=== PATIENT | female | born 1940 | race Caucasian/White ===

== ENCOUNTER 2025-05-29 11:14 | Inpatient (IN) | payer MEDICARE, OTHER, SELFPAY ==
[2025-05-29] MEDS ORDERED: Ketorolac Tromethamine 30 MG (1 mL) VIAL ONE (11:38)
[2025-05-29 11:52] LABS: ALT (SGPT) 54 U/L (Less than 34); AST (SGOT) 123 U/L (11-34); Albumin 3.1 g/dL (3.1-4.5); Alkaline Phosphatase 64 U/L (40-110); Anion Gap 16 mmol/L (10-20); BUN (Urea Nitrogen) 44 mg/dL (9.8-20.1); Bilirubin, Total 1.5 mg/dL (0.3-1.2); Calc. Creatinine Clearance 0 mL/min (70-130); Calcium 10.6 mg/dL (7.8-10.44); Carbon Dioxide 18 mmol/L (23-31); Chloride 102 mmol/L (98-107); Globulin 4.2 g/dL (2.4-3.5); Glucose 232 mg/dL (83-110); Potassium 4.3 mmol/L (3.5-5.1); Sodium 132 mmol/L (136-145)
[2025-05-29 12:14] LABS: INR-International Normal Ratio 1.3; PTT 36.3 sec (22.9-36.1); Prothrombin Time 16.4 sec (12.0-14.7)
[2025-05-29 12:27] LABS: #Basophils 0.03 10x3/uL (0.0-0.2); #Eosinophils Less than 0.03 10x3/uL (0.0-0.7); #Monocytes 1.36 10x3/uL (0.11-0.59); #Neutrophils 10.84 10x3/uL (1.40-6.50); %Basophils 0.2 % (0.0-1.0); %Eosinophils 0.0 % (0.0-10.0); %Lymphocytes 7.7 % (21.0-51.0); %Monocytes 10.2 % (0.0-10.0); %Neutrophils 81.4 % (42.0-75.0); Hematocrit 38.8 % (36.0-47.0); Hemoglobin 12.8 g/dL (12.0-16.0); Mean Corpuscular Hemoglobin 28.3 pg (27.0-31.0); Mean Corpuscular Volume 85.7 fL (78.0-98.0); Platelet Count 160 10x3/uL (130-400); Red Blood Cell (RBC) Count 4.53 mill/uL (4.20-5.40); White Blood Cell (WBC) Count 13.32 10x3/uL (4.8-10.8)
[2025-05-29] MEDS ORDERED: Heparin 5,000 UNITS/ML VIAL ONE (13:47)
[2025-05-29] MEDS ORDERED: Senokot S 8.6-50 MG TAB PO PRN (15:53)
[2025-05-29] MEDS ORDERED: Bisacodyl 10 MG SUPP PR PRN (15:53)
[2025-05-29] MEDS ORDERED: Ondansetron PF 4 MG/2 ML Vial IVP PRN (15:53)
[2025-05-29] MEDS ORDERED: Pantoprazole 40 MG VIAL ONE (19:54)
[2025-05-29] MEDS ORDERED: Aspirin 325 MG TAB ONE (19:54)
[2025-05-29] MEDS: Aspirin 325 MG TAB PO SCH (20:02)
[2025-05-29] MEDS: Pantoprazole 40 MG VIAL IVP SCH (20:05)
[2025-05-30 01:27] VITALS: BMI 24.7
[2025-05-30 03:51] LABS: #Basophils Less than 0.03 10x3/uL (0.0-0.2); #Eosinophils Less than 0.03 10x3/uL (0.0-0.7); #Monocytes 0.88 10x3/uL (0.11-0.59); #Neutrophils 8.33 10x3/uL (1.40-6.50); %Basophils 0.2 % (0.0-1.0); %Eosinophils 0.2 % (0.0-10.0); %Lymphocytes 5.3 % (21.0-51.0); %Monocytes 9.0 % (0.0-10.0); %Neutrophils 84.8 % (42.0-75.0); Hematocrit 40.5 % (36.0-47.0); Hemoglobin 13.2 g/dL (12.0-16.0); Mean Corpuscular Hemoglobin 28.6 pg (27.0-31.0); Mean Corpuscular Volume 87.9 fL (78.0-98.0); Platelet Count 150 10x3/uL (130-400); Red Blood Cell (RBC) Count 4.61 mill/uL (4.20-5.40); White Blood Cell (WBC) Count 9.82 10x3/uL (4.8-10.8)
[2025-05-30 04:15] LABS: ALT (SGPT) 44 U/L (Less than 34); AST (SGOT) 77 U/L (11-34); Albumin 3.0 g/dL (3.1-4.5); Alkaline Phosphatase 68 U/L (40-110); Anion Gap 16 mmol/L (10-20); BUN (Urea Nitrogen) 44 mg/dL (9.8-20.1); Bilirubin, Direct 0.6 mg/dL (0.1-0.3); Bilirubin, Total 1.2 mg/dL (0.3-1.2); Calc. Creatinine Clearance 22 mL/min (70-130); Calcium 10.7 mg/dL (7.8-10.44); Carbon Dioxide 18 mmol/L (23-31); Cardiac Risk 4.0 (Less than 4.5); Chloride 105 mmol/L (98-107); Cholesterol 101 mg/dl (< 200 Desired); Glucose 130 mg/dL (83-110); HDL Cholesterol 25 mg/dL (>60 Neg Risk); LDL Cholesterol, Calculated 55 mg/dL; Magnesium 1.9 mg/dL (1.6-2.6); Potassium 4.3 mmol/L (3.5-5.1); Sodium 135 mmol/L (136-145); Triglycerides 103 mg/dL (Less than 150)
[2025-05-30] MEDS: Heparin 10,000 UNITS/ 10 ML VIAL SLOW IVP SCH (06:50)
[2025-05-30] MEDS: Aspirin 81 mg Enteric Coated Tablet PO SCH (09:14)
[2025-05-30] MEDS: Pantoprazole 40 MG VIAL IVP SCH (09:14)
[2025-05-30] MEDS: Rosuvastatin 5 MG TAB PO SCH (09:16)
[2025-05-30] MEDS: Metoprolol Succinate XL 100 MG ER.TAB PO SCH (09:16)
[2025-05-30] MEDS: Pregabalin 50 MG CAP PO SCH (09:16)
[2025-05-30 21:01] LABS: Bacteria/HPF 4+ HPF (None Seen); Glucose, Urine (Dipstick) Normal (Negative); Leukocyte 500 Leu/uL (Negative); Protein, Urine (Dipstick) 70 mg/dL (Neg-Trace); RBC/HPF 0-3 HPF (0-3); Specific Gravity, Urine 1.017 (1.002-1.036); WBC/HPF 21-50 HPF (0-3)
[2025-05-31 06:31] LABS: Anion Gap 15 mmol/L (10-20); BUN (Urea Nitrogen) 40 mg/dL (9.8-20.1); Calc. Creatinine Clearance 22 mL/min (70-130); Calcium 9.5 mg/dL (7.8-10.44); Carbon Dioxide 16 mmol/L (23-31); Chloride 108 mmol/L (98-107); Glucose 116 mg/dL (83-110); Magnesium 1.9 mg/dL (1.6-2.6); Potassium 4.5 mmol/L (3.5-5.1); Sodium 134 mmol/L (136-145)
[2025-05-31 07:26] LABS: Anisocytosis SLIGHT = 6-15 cells HPF (0-5); Burr Cells SLIGHT = 2-5 cells HPF (0-1); Macrocytosis SLIGHT = 6-15 cells HPF (0-5); Platelet Adequacy Comment Platelets Normal; Polychromasia SLIGHT = 2-3 cells HPF (0-2)
[2025-05-31 08:17] LABS: #Basophils Less than 0.03 10x3/uL (0.0-0.2); #Eosinophils 0.04 10x3/uL (0.0-0.7); #Monocytes 0.98 10x3/uL (0.11-0.59); #Neutrophils 6.09 10x3/uL (1.40-6.50); %Basophils 0.3 % (0.0-1.0); %Eosinophils 0.5 % (0.0-10.0); %Lymphocytes 8.3 % (21.0-51.0); %Monocytes 12.5 % (0.0-10.0); %Neutrophils 77.8 % (42.0-75.0); Hematocrit 38.1 % (36.0-47.0); Hemoglobin 11.8 g/dL (12.0-16.0); Mean Corpuscular Hemoglobin 28.9 pg (27.0-31.0); Mean Corpuscular Volume 93.4 fL (78.0-98.0); Platelet Count 128 10x3/uL (130-400); Red Blood Cell (RBC) Count 4.08 mill/uL (4.20-5.40); White Blood Cell (WBC) Count 7.83 10x3/uL (4.8-10.8)
[2025-05-31] MEDS: cefTRIAXone\\ROCEPHIN 1 GM in Sodium Chloride 0.9% 100 ML IVPB SCH (09:52)
[2025-05-31] MEDS: Furosemide 40 MG (4 mL) VIAL SLOW IVP SCH ×2 (13:25→16:43)
[2025-05-31] MEDS: Sodium Bicarbonate Tab 325 MG TAB PO SCH ×2 (13:25→20:59)
[2025-05-31 20:16] LABS: Hematocrit 38.0 % (36.0-47.0); Hemoglobin 12.2 g/dL (12.0-16.0); Platelet Count 144 10x3/uL (130-400)
[2025-06-01 09:00] LABS: #Basophils 0.03 10x3/uL (0.0-0.2); #Eosinophils 0.04 10x3/uL (0.0-0.7); #Monocytes 0.75 10x3/uL (0.11-0.59); #Neutrophils 4.90 10x3/uL (1.40-6.50); %Basophils 0.5 % (0.0-1.0); %Eosinophils 0.6 % (0.0-10.0); %Lymphocytes 10.9 % (21.0-51.0); %Monocytes 11.5 % (0.0-10.0); %Neutrophils 75.3 % (42.0-75.0); Hematocrit 37.1 % (36.0-47.0); Hemoglobin 12.2 g/dL (12.0-16.0); Mean Corpuscular Hemoglobin 29.0 pg (27.0-31.0); Mean Corpuscular Volume 88.3 fL (78.0-98.0); Platelet Count 134 10x3/uL (130-400); Red Blood Cell (RBC) Count 4.20 mill/uL (4.20-5.40); White Blood Cell (WBC) Count 6.51 10x3/uL (4.8-10.8)
[2025-06-01 09:26] LABS: Anion Gap 14 mmol/L (10-20); BUN (Urea Nitrogen) 41 mg/dL (9.8-20.1); Calc. Creatinine Clearance 23 mL/min (70-130); Calcium 9.8 mg/dL (7.8-10.44); Carbon Dioxide 22 mmol/L (23-31); Chloride 104 mmol/L (98-107); Glucose 126 mg/dL (83-110); Magnesium 1.7 mg/dL (1.6-2.6); Potassium 3.9 mmol/L (3.5-5.1); Sodium 136 mmol/L (136-145)
[2025-06-01] MEDS: Furosemide 20 MG TAB PO SCH (12:47)
[2025-06-01] MEDS: Acetaminophen 325 MG TAB PO PRN (17:33)
[2025-06-02] MEDS: LevoFLOXacin 250 mg/D5W 250 MG in Premix 1 BAG IVPB SCH (11:29)
[2025-06-02] MEDS: Furosemide 20 MG TAB PO SCH (11:30)
[2025-06-02 20:01] LABS: Hematocrit 37.3 % (36.0-47.0); Hemoglobin 11.7 g/dL (12.0-16.0); Platelet Count 136 10x3/uL (130-400)
[2025-06-03] MEDS: Furosemide 40 MG TAB PO SCH (06:32)
[2025-06-03] MEDS: Enoxaparin 30 MG (0.3 mL) SYRINGE SC SCH (08:45)
[2025-06-04 05:11] LABS: #Basophils 0.03 10x3/uL (0.0-0.2); #Eosinophils 0.22 10x3/uL (0.0-0.7); #Monocytes 0.76 10x3/uL (0.11-0.59); #Neutrophils 4.03 10x3/uL (1.40-6.50); %Basophils 0.5 % (0.0-1.0); %Eosinophils 3.6 % (0.0-10.0); %Lymphocytes 15.5 % (21.0-51.0); %Monocytes 12.6 % (0.0-10.0); %Neutrophils 66.6 % (42.0-75.0); Hematocrit 37.8 % (36.0-47.0); Hemoglobin 12.3 g/dL (12.0-16.0); Mean Corpuscular Hemoglobin 28.3 pg (27.0-31.0); Mean Corpuscular Volume 87.1 fL (78.0-98.0); Platelet Count 189 10x3/uL (130-400); Red Blood Cell (RBC) Count 4.34 mill/uL (4.20-5.40); White Blood Cell (WBC) Count 6.05 10x3/uL (4.8-10.8)
[2025-06-04 05:44] LABS: ALT (SGPT) 15 U/L (Less than 34); AST (SGOT) 22 U/L (11-34); Albumin 2.2 g/dL (3.1-4.5); Alkaline Phosphatase 77 U/L (40-110); Anion Gap 12 mmol/L (10-20); BUN (Urea Nitrogen) 31 mg/dL (9.8-20.1); Bilirubin, Total 0.4 mg/dL (0.3-1.2); Calc. Creatinine Clearance 34 mL/min (70-130); Calcium 9.3 mg/dL (7.8-10.44); Carbon Dioxide 31 mmol/L (23-31); Chloride 96 mmol/L (98-107); Globulin 3.8 g/dL (2.4-3.5); Glucose 146 mg/dL (83-110); Potassium 3.8 mmol/L (3.5-5.1); Sodium 135 mmol/L (136-145)
[2025-06-04] MEDS: Pantoprazole 40 MG DR.TAB PO SCH (09:10)
[2025-06-05 17:08] VITALS: BMI 25.4
[2025-06-07] MEDS ORDERED: Metoprolol Succinate XL 50 MG ER.TAB PO SCH (09:00)
[2025-06-08 10:01] LABS: #Basophils 0.04 10x3/uL (0.0-0.2); #Eosinophils 0.13 10x3/uL (0.0-0.7); #Monocytes 0.41 10x3/uL (0.11-0.59); #Neutrophils 3.47 10x3/uL (1.40-6.50); %Basophils 0.8 % (0.0-1.0); %Eosinophils 2.6 % (0.0-10.0); %Lymphocytes 18.1 % (21.0-51.0); %Monocytes 8.2 % (0.0-10.0); %Neutrophils 68.9 % (42.0-75.0); Hematocrit 40.3 % (36.0-47.0); Hemoglobin 12.7 g/dL (12.0-16.0); Mean Corpuscular Hemoglobin 27.8 pg (27.0-31.0); Mean Corpuscular Volume 88.2 fL (78.0-98.0); Platelet Count 411 10x3/uL (130-400); Red Blood Cell (RBC) Count 4.57 mill/uL (4.20-5.40); White Blood Cell (WBC) Count 5.03 10x3/uL (4.8-10.8)
[2025-06-08 10:14] LABS: Anion Gap 13 mmol/L (10-20); BUN (Urea Nitrogen) 33 mg/dL (9.8-20.1); Calc. Creatinine Clearance 32 mL/min (70-130); Calcium 10.3 mg/dL (7.8-10.44); Carbon Dioxide 29 mmol/L (23-31); Chloride 94 mmol/L (98-107); Glucose 267 mg/dL (83-110); Potassium 4.6 mmol/L (3.5-5.1); Sodium 131 mmol/L (136-145)
[2025-06-08] MEDS: Metoprolol Succinate XL 50 MG ER.TAB PO SCH (13:41)
[2025-06-09 06:06] LABS: #Basophils 0.06 10x3/uL (0.0-0.2); #Eosinophils 0.19 10x3/uL (0.0-0.7); #Monocytes 0.58 10x3/uL (0.11-0.59); #Neutrophils 2.57 10x3/uL (1.40-6.50); %Basophils 1.3 % (0.0-1.0); %Eosinophils 4.2 % (0.0-10.0); %Lymphocytes 23.1 % (21.0-51.0); %Monocytes 12.9 % (0.0-10.0); %Neutrophils 56.9 % (42.0-75.0); Hematocrit 39.6 % (36.0-47.0); Hemoglobin 12.8 g/dL (12.0-16.0); Mean Corpuscular Hemoglobin 28.3 pg (27.0-31.0); Mean Corpuscular Volume 87.4 fL (78.0-98.0); Platelet Count 409 10x3/uL (130-400); Red Blood Cell (RBC) Count 4.53 mill/uL (4.20-5.40); White Blood Cell (WBC) Count 4.51 10x3/uL (4.8-10.8)
[2025-06-09 06:37] LABS: Anion Gap 13 mmol/L (10-20); BUN (Urea Nitrogen) 36 mg/dL (9.8-20.1); Calc. Creatinine Clearance 29 mL/min (70-130); Calcium 10.2 mg/dL (7.8-10.44); Carbon Dioxide 29 mmol/L (23-31); Chloride 96 mmol/L (98-107); Glucose 152 mg/dL (83-110); Potassium 4.5 mmol/L (3.5-5.1); Sodium 133 mmol/L (136-145)
[2025-06-09] MEDS: Metoprolol Succinate XL 50 MG ER.TAB PO SCH (09:24)
[2025-06-09] MEDS: LevoFLOXacin 250 mg/D5W 250 MG in Premix 1 BAG IVPB SCH (09:27)
[2025-06-09 17:19] VITALS: BP 111/72; TEMP 97.5
== END 2025-06-09 18:29 | DRG 280 ==
LOC: ERS 11:14 → ERHOLD 15:15 → 2NO 05-30 00:29 → T4-B 06-07 15:29
PROVIDERS: ADMIT Family Medicine; ATTEND Internal Medicine
DX: I25.10 Atherosclerotic heart disease of native coronary artery without angina pectoris (principal); A41.9 Sepsis, unspecified organism; I21.A1 Myocardial infarction type 2; I50.31 Acute diastolic (congestive) heart failure; E87.1 Hypo-osmolality and hyponatremia; I13.0 Hypertensive heart and chronic kidney disease with heart failure and stage 1 through stage 4 chronic kidney disease, or unspecified chronic kidney disease; N39.0 Urinary tract infection, site not specified; N17.9 Acute kidney failure, unspecified; E78.5 Hyperlipidemia, unspecified; G62.9 Polyneuropathy, unspecified; E11.22 Type 2 diabetes mellitus with diabetic chronic kidney disease; I70.0 Atherosclerosis of aorta; E83.52 Hypercalcemia; I44.7 Left bundle-branch block, unspecified; N18.30 Chronic kidney disease, stage 3 unspecified; Z93.3 Colostomy status; Z60.2 Problems related to living alone; I34.0 Nonrheumatic mitral (valve) insufficiency; Z79.84 Long term (current) use of oral hypoglycemic drugs; Z79.899 Other long term (current) drug therapy
CPT/HCPCS: 36415; 36416; 70450; 71045; 71250; 72125; 80048; 80053; 80061; 80076; 81001; 82550; 83036; 83735; 83880; 84443; 84484; 85014; 85018; 85025; 85049; 85610; 85730; 86850; 86900; 86901; 87077; 87086; 93005; 93306; 94760; 96374; 96375; J0696; J1644; J1650; J1885; J1940; J1956; J2470; J7030

== ENCOUNTER 2025-06-27 11:18 | Inpatient (IN) | payer MEDICARE, SELFPAY ==
[~2025-06-27 11:18] MED LIST: Iopamidol-370 76% 500 ML MDV (1 ML CHARGE) ONE
[2025-06-27 11:56] LABS: #Basophils 0.05 10x3/uL (0.0-0.2); #Eosinophils 0.30 10x3/uL (0.0-0.7); #Monocytes 0.59 10x3/uL (0.11-0.59); #Neutrophils 1.96 10x3/uL (1.40-6.50); %Basophils 1.2 % (0.0-1.0); %Eosinophils 7.3 % (0.0-10.0); %Lymphocytes 28.9 % (21.0-51.0); %Monocytes 14.4 % (0.0-10.0); %Neutrophils 48.0 % (42.0-75.0); Hematocrit 35.8 % (36.0-47.0); Hemoglobin 11.2 g/dL (12.0-16.0); Mean Corpuscular Hemoglobin 27.6 pg (27.0-31.0); Mean Corpuscular Volume 88.2 fL (78.0-98.0); Platelet Count 199 10x3/uL (130-400); Red Blood Cell (RBC) Count 4.06 mill/uL (4.20-5.40); White Blood Cell (WBC) Count 4.09 10x3/uL (4.8-10.8)
[2025-06-27 12:02] LABS: ALT (SGPT) 15 U/L (Less than 34); AST (SGOT) 27 U/L (11-34); Albumin 3.1 g/dL (3.1-4.5); Alkaline Phosphatase 69 U/L (40-110); Anion Gap 17 mmol/L (10-20); BUN (Urea Nitrogen) 30 mg/dL (9.8-20.1); Bilirubin, Total 0.7 mg/dL (0.3-1.2); Calc. Creatinine Clearance 0 mL/min (70-130); Calcium 10.4 mg/dL (7.8-10.44); Carbon Dioxide 21 mmol/L (23-31); Chloride 102 mmol/L (98-107); Globulin 4.4 g/dL (2.4-3.5); Glucose 118 mg/dL (83-110); Potassium 4.7 mmol/L (3.5-5.1); Sodium 135 mmol/L (136-145)
[2025-06-27] MEDS ORDERED: Melatonin 3 MG TAB PO PRN (15:26)
[2025-06-27] MEDS ORDERED: Acetaminophen 325 MG TAB PO PRN (15:26)
[2025-06-27] MEDS ORDERED: Guaifenesin DM 100-10/5 ML UDCUP PO PRN (15:26)
[2025-06-27] MEDS ORDERED: Senokot S 8.6-50 MG TAB PO PRN (15:26)
[2025-06-27] MEDS ORDERED: Ondansetron PF 4 MG/2 ML Vial IVP PRN (15:26)
[2025-06-27] MEDS ORDERED: Nitroglycerin 0.4 MG TAB (25 Tab Bottle) SL PRN (15:29)
[2025-06-27] MEDS ORDERED: Electrolyte Replacement Protocol 1 EACH FS SCH (15:30)
[2025-06-27] MEDS ORDERED: Glucagon 1 MG/ML KIT IM PRN (17:24)
[2025-06-27] MEDS ORDERED: Dextrose 50% Abboject 50 ML SYRINGE SLOW IVP PRN (17:24)
[2025-06-27] MEDS ORDERED: Heparin 5,000 UNITS/ML VIAL ONE (21:20)
[2025-06-27] MEDS: Heparin 5,000 UNITS/ML VIAL SC SCH (21:31)
[2025-06-28 00:34] VITALS: BMI 24.5
[2025-06-28] MEDS: Rosuvastatin 5 MG TAB PO SCH (01:07)
[2025-06-28] MEDS: Diclofenac 1% 50 GM TOPICAL GEL TP SCH (01:08)
[2025-06-28 04:44] LABS: ALT (SGPT) 11 U/L (Less than 34); AST (SGOT) 25 U/L (11-34); Albumin 2.9 g/dL (3.1-4.5); Alkaline Phosphatase 65 U/L (40-110); Anion Gap 15 mmol/L (10-20); BUN (Urea Nitrogen) 27 mg/dL (9.8-20.1); Bilirubin, Total 0.6 mg/dL (0.3-1.2); Calc. Creatinine Clearance 31 mL/min (70-130); Calcium 10.3 mg/dL (7.8-10.44); Carbon Dioxide 20 mmol/L (23-31); Chloride 106 mmol/L (98-107); Globulin 4.3 g/dL (2.4-3.5); Glucose 109 mg/dL (83-110); Potassium 4.6 mmol/L (3.5-5.1); Sodium 136 mmol/L (136-145)
[2025-06-28 05:07] LABS: #Basophils Less than 0.03 10x3/uL (0.0-0.2); #Eosinophils 0.38 10x3/uL (0.0-0.7); #Monocytes 0.39 10x3/uL (0.11-0.59); #Neutrophils 2.07 10x3/uL (1.40-6.50); %Basophils 0.3 % (0.0-1.0); %Eosinophils 9.9 % (0.0-10.0); %Lymphocytes 24.9 % (21.0-51.0); %Monocytes 10.2 % (0.0-10.0); %Neutrophils 54.2 % (42.0-75.0); Hematocrit 40.8 % (36.0-47.0); Hemoglobin 13.2 g/dL (12.0-16.0); Mean Corpuscular Hemoglobin 28.3 pg (27.0-31.0); Mean Corpuscular Volume 87.6 fL (78.0-98.0); Platelet Count 155 10x3/uL (130-400); Red Blood Cell (RBC) Count 4.66 mill/uL (4.20-5.40); White Blood Cell (WBC) Count 3.82 10x3/uL (4.8-10.8)
[2025-06-28] MEDS: metFORMIN 500 MG TAB PO SCH (09:17)
[2025-06-28] MEDS: Metoprolol Succinate XL 50 MG ER.TAB PO SCH (09:17)
[2025-06-28] MEDS: Aspirin Chewable 81 MG TAB PO SCH (09:17)
[2025-06-28] MEDS: Famotidine 20 MG TAB PO SCH (09:17)
[2025-06-28] MEDS: Pregabalin 50 MG CAP PO SCH (15:18)
[2025-06-28] MEDS: Transdermal Patch Removal TOP SCH (20:32)
[2025-06-29 05:13] LABS: #Basophils Less than 0.03 10x3/uL (0.0-0.2); #Eosinophils 0.72 10x3/uL (0.0-0.7); #Monocytes 0.59 10x3/uL (0.11-0.59); #Neutrophils 2.75 10x3/uL (1.40-6.50); %Basophils 0.4 % (0.0-1.0); %Eosinophils 14.0 % (0.0-10.0); %Lymphocytes 20.6 % (21.0-51.0); %Monocytes 11.5 % (0.0-10.0); %Neutrophils 53.3 % (42.0-75.0); Hematocrit 38.8 % (36.0-47.0); Hemoglobin 12.1 g/dL (12.0-16.0); Mean Corpuscular Hemoglobin 27.9 pg (27.0-31.0); Mean Corpuscular Volume 89.4 fL (78.0-98.0); Platelet Count 204 10x3/uL (130-400); Red Blood Cell (RBC) Count 4.34 mill/uL (4.20-5.40); White Blood Cell (WBC) Count 5.15 10x3/uL (4.8-10.8)
[2025-06-29 05:28] LABS: Anion Gap 15 mmol/L (10-20); BUN (Urea Nitrogen) 25 mg/dL (9.8-20.1); Calc. Creatinine Clearance 32 mL/min (70-130); Calcium 9.8 mg/dL (7.8-10.44); Carbon Dioxide 19 mmol/L (23-31); Chloride 108 mmol/L (98-107); Glucose 117 mg/dL (83-110); Potassium 4.7 mmol/L (3.5-5.1); Sodium 137 mmol/L (136-145)
[2025-06-29] MEDS: PNEUMOC 20-VAL CONJ-DIP CRM/PF 0.5 ML SYRINGE IM ONE (08:39)
[2025-06-29] MEDS: Cephalexin 250 MG CAP PO SCH (15:01)
[2025-06-30 05:09] LABS: #Basophils 0.03 10x3/uL (0.0-0.2); #Eosinophils 0.51 10x3/uL (0.0-0.7); #Monocytes 0.49 10x3/uL (0.11-0.59); #Neutrophils 1.73 10x3/uL (1.40-6.50); %Basophils 0.8 % (0.0-1.0); %Eosinophils 13.7 % (0.0-10.0); %Lymphocytes 25.5 % (21.0-51.0); %Monocytes 13.2 % (0.0-10.0); %Neutrophils 46.5 % (42.0-75.0); Hematocrit 41.4 % (36.0-47.0); Hemoglobin 12.8 g/dL (12.0-16.0); Mean Corpuscular Hemoglobin 28.5 pg (27.0-31.0); Mean Corpuscular Volume 92.2 fL (78.0-98.0); Platelet Count 177 10x3/uL (130-400); Red Blood Cell (RBC) Count 4.49 mill/uL (4.20-5.40); White Blood Cell (WBC) Count 3.72 10x3/uL (4.8-10.8)
[2025-06-30 05:24] LABS: Anion Gap 13 mmol/L (10-20); BUN (Urea Nitrogen) 23 mg/dL (9.8-20.1); Calc. Creatinine Clearance 31 mL/min (70-130); Calcium 10.0 mg/dL (7.8-10.44); Carbon Dioxide 18 mmol/L (23-31); Chloride 109 mmol/L (98-107); Glucose 106 mg/dL (83-110); Potassium 5.1 mmol/L (3.5-5.1); Sodium 135 mmol/L (136-145)
[2025-06-30 12:37] VITALS: BP 133/65; TEMP 97.8
== END 2025-06-30 14:22 | disposition home or self-care (01) | DRG 313 ==
LOC: ERS 11:18 → ERHOLD 15:34 → 2NO 06-28 00:01 → OBSVTOIN 06-29 12:34
PROVIDERS: ADMIT Family Medicine; ATTEND Internal Medicine
DX: R07.89 Other chest pain (principal); I13.0 Hypertensive heart and chronic kidney disease with heart failure and stage 1 through stage 4 chronic kidney disease, or unspecified chronic kidney disease; N18.32 Chronic kidney disease, stage 3b; I50.9 Heart failure, unspecified; E78.5 Hyperlipidemia, unspecified; E11.42 Type 2 diabetes mellitus with diabetic polyneuropathy; I25.10 Atherosclerotic heart disease of native coronary artery without angina pectoris; Z95.5 Presence of coronary angioplasty implant and graft; Z90.710 Acquired absence of both cervix and uterus; Z98.890 Other specified postprocedural states; Z88.8 Allergy status to other drugs, medicaments and biological substances; Z79.82 Long term (current) use of aspirin; Z79.899 Other long term (current) drug therapy; Z79.84 Long term (current) use of oral hypoglycemic drugs
CPT/HCPCS: 36415; 36416; 71045; 71275; 80048; 80053; 83880; 84484; 85025; 85379; 87426; 93005; 94760; 96372; G0378; J1644; Q9967